=== PATIENT | female | born 1985 | race Caucasian/White ===

== ENCOUNTER 2021-09-24 13:02 | Inpatient (IN) | payer OTHER ==
[2021-09-24] VITALS (7 sets, daily range): BP systolic 98–113; BP diastolic 53–73
[~2021-09-24] VITALS: Ht 152.4 cm; Wt 51.8 kg
--- NOTE | 2021-09-24 13:27 | PHYS DOC ---
Past Medical History Past Medical History: No Pertinent History Past Surgical History: No Surgical History Smoking Status: Never Smoker Alcohol Use: None Drug Use: None General Adult EDM: Chief Complaint: MECHANICAL FALL HPI: HPI: Patient is a 35-year-old female that presents today via [facility] after a syncopal episode. History was obtained from the mother who is at the bedside, she states they were putting away groceries today and the patient had a syncopal episode hitting the bridge of her nose on the counter. Patient states that she does not remember anything before the incident, she denies chest pain, shortness of air, headache, or fever and chills. Patient states she has not eaten or drink anything this morning, she normally eats afternoon. Patient denies any medical problems, surgeries, smoking, alcohol use, or drug use. Patient's Accu-Chek was 158. Review of Systems: Review of Systems: Constitutional: Denies fever or chills. [] Eyes: Denies change in visual acuity. [] HENT: Denies nasal congestion or sore throat. [] Respiratory: Denies cough or shortness of breath. [] Cardiovascular: Denies chest pain or edema. [] GI: Denies abdominal pain, nausea, vomiting, bloody stools or diarrhea. [] : Denies dysuria. [] Musculoskeletal: Denies back pain or joint pain. [] Integument: Laceration to the bridge of the nose denies rash. [] Neurologic: Syncopal episode denies headache, focal weakness or sensory changes. [] Endocrine: Denies polyuria or polydipsia. [] Lymphatic: Denies swollen glands. [] Psychiatric: Denies depression or anxiety. [] Heart Score: C/O Chest Pain: No Risk Factors: Risk Factors: DM, Current or recent (<one month) smoker, HTN, HLP, family history of CAD, obesity. Risk Scores: Score 0 - 3: 2.5% MACE over next 6 weeks - Discharge Home Score 4 - 6: 20.3% MACE over next 6 weeks - Admit for Clinical Observation Score 7 - 10: 72.7% MACE over next 6 weeks - Early Invasive Strategies Physical Exam: PE: Constitutional: Well developed, well nourished, no acute distress, non-toxic appearance. [] HENT: Inspection of palpation of the head and face shows no crepitus no step- offs, laceration noted on the bridge of the nose approximately half a centimeter, no active bleeding, no septal hematoma noted, bilateral external ears normal, oropharynx moist, no oral exudates[] Eyes: PERRLA, EOMI, conjunctiva normal, no discharge. [] Neck: Normal range of motion, no tenderness, supple, no stridor. [] Cardiovascular:Heart rate regular rhythm, no murmur [] Lungs & Thorax: Bilateral breath sounds clear to auscultation [] Abdomen: Bowel sounds normal, soft, no tenderness, no masses, no pulsatile mas ses. [] Skin: Warm, dry, no erythema, no rash. [] Back: No tenderness, no CVA tenderness. [] Extremities: No tenderness, no cyanosis, no clubbing, ROM intact, no edema, peripheral pulses are 2+ Neurologic: Alert and oriented X 3, normal motor function, normal sensory function, no focal deficits noted. [] Psychologic: Affect normal, judgement normal, mood normal. [] Current Patient Data: Labs: Laboratory Tests Test 09/24/21 13:35 09/24/21 14:00 09/24/21 14:06 09/24/21 15:05 White Blood Count 4.7 x10^3/uL Red Blood Count 1.89 x10^6/uL Hemoglobin 3.3 g/dL Hematocrit 11.0 % Mean Corpuscular Volume 58 fL Mean Corpuscular Hemoglobin 18 pg Mean Corpuscular Hemoglobin Concent 30 g/dL Red Cell Distribution Width 26.8 % Platelet Count 58 x10^3/uL Neutrophils (%) (Auto) 76 % Lymphocytes (%) (Auto) 15 % Monocytes (%) (Auto) 8 % Eosinophils (%) (Auto) 1 % Basophils (%) (Auto) 1 % Neutrophils # (Auto) 3.6 x10^3/uL Lymphocytes # (Auto) 0.7 x10^3/uL Monocytes # (Auto) 0.4 x10^3/uL Eosinophils # (Auto) 0.0 x10^3/uL Basophils # (Auto) 0.0 x10^3/uL Platelet Estimate Decreased Polychromasia Hypochromasia Marked Poikilocytosis Slight Anisocytosis Mod Microcytosis Marked Target Cells Present Tear Drop Cells Occ Ovalocytes Present Schistocytes Occ Sodium Level 138 mmol/L Potassium Level 4.1 mmol/L Chloride Level 104 mmol/L Carbon Dioxide Level 24 mmol/L Anion Gap 10 Blood Urea Nitrogen 9 mg/dL Creatinine 0.6 mg/dL Estimated GFR (Cockcroft-Gault) 112.5 BUN/Creatinine Ratio 15 Glucose Level 96 mg/dL Calcium Level 8.6 mg/dL Total Bilirubin 0.5 mg/dL Aspartate Amino Transf (AST/SGOT) 36 U/L Alanine Aminotransferase (ALT/SGPT) 17 U/L Alkaline Phosphatase 65 U/L Troponin I High Sensitivity 5 ng/L Total Protein 7.3 g/dL Albumin 3.4 g/dL Albumin/Globulin Ratio 0.9 Urine Collection Type Unknown Urine Color (Auto) Light yellow Urine Turbidity Hazy Urine pH (Auto) 7.0 Urine Specific [place] 1.012 Urine Protein (Auto) 50 mg/dL Urine Glucose (Auto)(UA) Negative mg/dL Urine Ketones (Auto) Negative mg/dL Urine Blood (Auto) Negative Urine Nitrite Negative Urine Bilirubin (Auto) Negative Urine Urobilinogen (Auto) Normal mg/dL Urine Leukocyte Esterase (Auto) Negative Urine RBC Occ /HPF Urine WBC 1-4 /HPF Urine Squamous Epithelial Cells Mod /LPF Urine Bacteria Moderate /HPF Bedside Urine HCG, Qualitative Hcg negative Stool Occult Blood Negative Current Medications Medications (Trade) Dose Ordered Sig/Rolan Route PRN Reason Start Time Stop Time Status Last Admin Dose Admin Sodium Chloride 1,000 ml @ 999 mls/hr 1X ONCE IV 09/24/21 13:30 09/24/21 14:30 DC 09/24/21 13:44 Vital Signs: Vital Signs Date Time Temp Pulse Resp B/P (MAP) Pulse Ox O2 Delivery O2 Flow Rate FiO2 09/24/21 13:39 97.8 105 18 110/58 (75) 100 Room Air 97.8 EKG: EKG: EKG done at [address] Gonzalez at 1322 shows sinus rhythm no ectopy at a rate of 103 with a TX interval of 144 ms with a QTC of 426 ms no STEMI [] Radiology/Procedures: Radiology/Procedures: REASON: SYNCOPE PROCEDURE: CT MAXILLOFACIAL WO CONTRAST Exam Date: 09/24/2021 2:[address] MAXILLOFACIAL WITHOUT CONTRAST, CT HEAD AND C-SPINE WO Indication: Reason: SYNCOPE / Spl. Instructions: / History: . One or more of the following dose reduction techniques were utilized: *Automated exposure control (AEC) *Adjustment of mA and/or kV according to patient size *Use of iterative reconstruction technique *CT scan done according to ALARA, or ALARA/IMAGE GENTLY EXAMINATION: CT OF THE HEAD WITHOUT CONTRAST INDICATION: Trauma, head injury, headache; TECHNIQUE: Noncontrast helical axial CT images of the head were obtained. FINDINGS: The ventricles and sulci are normal for the patient's stated age. There is no evidence of acute intracranial hemorrhage, extra-axial collection, mass effect, midline shift, or acute territorial infarct. No lesion of the skull base or the calvarium is seen. The visualized paranasal sinuses, mastoid air cells, and orbits are normal in appearance. IMPRESSION: No evidence for acute intracranial abnormality. EXAMINATION: MAXILLOFACIAL CT WITHOUT CONTRAST CLINICAL INDICATION: Maxillofacial pain after trauma TECHNIQUE: Helical axial CT images through the maxillofacial bones were obtained without contrast. Source data were reconstructed into the sagittal and coronal planes. FINDINGS: There is no evidence of acute facial bone fracture. The mandible appears intact. Orbits appear intact. The nasal septum is intact and near midline. The visualized paranasal sinuses and mastoid air cells appear clear. IMPRESSION: No evidence of acute fracture of the maxillofacial bones. EXAMINATION: CT OF THE CERVICAL SPINE WITHOUT CONTRAST Clinical Indication: Cervical spine pain after trauma Technique: Thin cut helical axial CT images through the cervical spine were obtained without contrast on a multi-detector CT scanner. Source data was then reconstructed into sagittal and coronal planes. Findings: Alignment is maintained without spondylolisthesis. Vertebral body heights are maintained without acute fracture. Disc spaces are preserved. No significant prevertebral soft tissue swelling is demonstrated. No severe osseous central canal stenosis is seen. Impression: No evidence of acute cervical spine fracture or subluxation. Electronically signed by: Joseph Brandt MD (09/24/2021 3:59 PM) [facility] DICTATED and SIGNED BY: JOSEPH BRANDT MD DATE: 09/24/21 1541 [] Course & Med Decision Making: Course & Med Decision Making Pertinent Labs and Imaging studies reviewed. (See chart for details) 1515 was informed by nursing staff patient has bedbugs, due to hemoglobin 3.3 rectal exam was performed with regulatory affairs assistant at the bedside fecal occult was sent to the lab. Did inform mom that due to patient's low hemoglobin the patient will be admitted for further evaluation and treatment of her low hemoglobin we continue to wait for radiological results. Dermabond was used to repair half centimeter laceration on the bridge of the nose, patient tolerated well. Dragon Disclaimer: Dragon Disclaimer: This electronic medical record was generated, in whole or in part, using a voice recognition dictation system. Departure Departure Impression: Primary Impression: Syncope Qualified Codes: R55 - Syncope and collapse Additional Impressions: Anemia Qualified Codes: D64.9 - Anemia, unspecified Laceration of face Qualified Codes: S01.81XA - Laceration without foreign body of other part of head, initial encounter Disposition: ADMITTED INPATIENT Admitting Physician: Eugenio Lyle Condition: GUARDED Referrals: DELIA POLK MD (PCP) CAROL RAE APRN Sep 24, 2021 13:27
[2021-09-24] MEDS ORDERED: IV NORMAL SALINE 1000ML BAG 1,000 ML IV ONE (13:30)
[2021-09-24 13:47] LABS: BASO % 1 % (0-3); EOS % 1 % (0-3); LYMPH # 0.7 x10^3/uL (1.0-4.8); LYMPH % 15 % (24-48); MEAN CORPUSCULAR HEMOGLOBIN 18 pg (25-35); MEAN CORPUSCULAR HGB CONC 30 g/dL (31-37); MEAN CORPUSCULAR VOLUME 58 fL (79-100); MONO # 0.4 x10^3/uL (0.0-1.1); MONO % 8 % (0-9); NEUT # 3.6 x10^3/uL (1.8-7.7); NEUT % 76 % (31-73); PLATELET COUNT 58 x10^3/uL (140-400); RED BLOOD COUNT 1.89 x10^6/uL (3.50-5.40); RED CELL DISTRIBUTION WIDTH 26.8 % (11.5-14.5); WHITE BLOOD COUNT 4.7 x10^3/uL (4.0-11.0)
[2021-09-24 13:54] LABS: HEMOGLOBIN 3.3 g/dL (12.0-15.5)
[2021-09-24 13:58] LABS: CALCIUM 8.6 mg/dL (8.5-10.1); CREATININE 0.6 mg/dL (0.6-1.0); GFR 112.5; POTASSIUM 4.1 mmol/L (3.5-5.1)
--- NOTE | 2021-09-24 13:59 | EKG ---
[facility] [address] [place] [address] Test Date: 2021-09-24 Test Time: 13:20:03 Pat Name: ADRIAN AGUIRRE Department: Room: Gender: F [employer]: : 1985 Requested By: CAROL RAE Order Number: [id number] Reading MD: Naveen Mccormick Measurements Intervals [place] Rate: 103 P: 121 NM: 144 QRS: 159 QRSD: 74 T: 149 QT: 324 QTc: 426 Interpretive Statements SINUS TACHYCARDIA LEFT ATRIAL ABNORMALITY LOW LIMB LEAD VOLTAGE QRS(T) CONTOUR ABNORMALITY CONSISTENT WITH HIGH LATERAL INFARCT AGE UNDETERMINED ABNORMAL ECG RI6.02 No previous ECG available for comparison Electronically Signed On 10-02-2021 14:21:50 CDT by Naveen Mccormick
[2021-09-24 14:03] LABS: ALBUMIN 3.4 g/dL (3.4-5.0); ALBUMIN/GLOBULIN RATIO 0.9 (1.0-1.7); TOTAL BILIRUBIN 0.5 mg/dL (0.2-1.0); TOTAL PROTEIN 7.3 g/dL (6.4-8.2)
[2021-09-24 14:25] LABS: BACTERIA,URINE MODERATE /HPF (0-FEW); RBC,URINE OCC /HPF (0-2)
[2021-09-24 14:42] LABS: ANISOCYTOSIS MOD; HYPOCHROMIA MARKED; MICROCYTOSIS MARKED; PLT ESTIMATE DECREASED (ADEQUATE); POIKILOCYTOSIS SLIGHT
[2021-09-24 14:43] LABS: OVALOCYTES PRESENT; TARGET CELLS PRESENT; TEAR DROP CELLS OCC
[2021-09-24 14:44] LABS: SCHISTOCYTES OCC
[2021-09-24 15:24] LABS: FECAL OB PT NEGATIVE (NEG)
[2021-09-24 15:54] LABS: THYROID STIM HORMONE (TSH) 1.923 uIU/mL (0.358-3.74)
--- NOTE | 2021-09-24 16:02 | RAD ---
Exam Date: 09/24/2021 2:[address] MAXILLOFACIAL WITHOUT CONTRAST, CT HEAD AND C-SPINE WO Indication: Reason: SYNCOPE / Spl. Instructions: / History: . One or more of the following dose reduction techniques were utilized: *Automated exposure control (AEC) *Adjustment of mA and/or kV according to patient size *Use of iterative reconstruction technique *CT scan done according to ALARA, or ALARA/IMAGE GENTLY EXAMINATION: CT OF THE HEAD WITHOUT CONTRAST INDICATION: Trauma, head injury, headache; TECHNIQUE: Noncontrast helical axial CT images of the head were obtained. FINDINGS: The ventricles and sulci are normal for the patient's stated age. There is no evidence of acute int racranial hemorrhage, extra-axial collection, mass effect, midline shift, or acute territorial infarc t. No lesion of the skull base or the calvarium is seen. The visualized paranasal sinuses, mastoid ai r cells, and orbits are normal in appearance. IMPRESSION: No evidence for acute intracranial abnormality. EXAMINATION: MAXILLOFACIAL CT WITHOUT CONTRAST CLINICAL INDICATION: Maxillofacial pain after trauma TECHNIQUE: Helical axial CT images through the maxillofacial bones were obtained without contrast. So urce data were reconstructed into the sagittal and coronal planes. FINDINGS: There is no evidence of acute facial bone fracture. The mandible appears intact. Orbits appear intact . The nasal septum is intact and near midline. The visualized paranasal sinuses and mastoid air cells appear clear. IMPRESSION: No evidence of acute fracture of the maxillofacial bones. EXAMINATION: CT OF THE CERVICAL SPINE WITHOUT CONTRAST Clinical Indication: Cervical spine pain after trauma Technique: Thin cut helical axial CT images through the cervical spine were obtained without contrast on a multi-detector CT scanner. Source data was then reconstructed into sagittal and coronal planes. Findings: Alignment is maintained without spondylolisthesis. Vertebral body heights are maintained without acute fracture. Disc spaces are preserved. No signific ant prevertebral soft tissue swelling is demonstrated. No severe osseous central canal stenosis is se en. Impression: No evidence of acute cervical spine fracture or subluxation. Electronically signed by: Moe Brandt MD (09/24/2021 3:59 PM) MICHELLE
[2021-09-25] VITALS (13 sets, daily range): BP systolic 92–112; BP diastolic 38–62
[2021-09-25 02:38] LABS: BASO % 1 % (0-3); EOS % 0 % (0-3); HEMATOCRIT 19.6 % (36.0-47.0); LYMPH # 0.9 x10^3/uL (1.0-4.8); LYMPH % 27 % (24-48); MEAN CORPUSCULAR HEMOGLOBIN 21 pg (25-35); MEAN CORPUSCULAR HGB CONC 30 g/dL (31-37); MEAN CORPUSCULAR VOLUME 71 fL (79-100); MONO # 0.4 x10^3/uL (0.0-1.1); MONO % 13 % (0-9); NEUT # 1.9 x10^3/uL (1.8-7.7); NEUT % 59 % (31-73); PLATELET COUNT 47 x10^3/uL (140-400); RED BLOOD COUNT 2.76 x10^6/uL (3.50-5.40); RED CELL DISTRIBUTION WIDTH 30.1 % (11.5-14.5); WHITE BLOOD COUNT 3.2 x10^3/uL (4.0-11.0)
[2021-09-25 02:40] LABS: HEMOGLOBIN 5.8 g/dL (12.0-15.5)
--- NOTE | 2021-09-25 09:18 | PDOC ---
Provider Note Date of Service: DATE: 09/25/21 TIME: 09:18 Provider Note dictated Justifications for Admission Other Justification CHERI COOL MD Sep 25, 2021 09:18
[2021-09-25 09:38] LABS: HEMATOCRIT 26.3 % (36.0-47.0); RED BLOOD COUNT 3.55 x10^6/uL (3.50-5.40); RED CELL DISTRIBUTION WIDTH 28.8 % (11.5-14.5); WHITE BLOOD COUNT 4.5 x10^3/uL (4.0-11.0)
--- NOTE | 2021-09-25 11:30 | PDOC2 ---
GI CONSULT Date of Service: DATE: 09/25/21 TIME: 11:30 Reason For Consult: ADRIANA HPI: HPI: 35 y/o female admitted through ER after syncope/fall at home (mom heard a thud). Noted w/ profound microcytic anemia, requiring transfusions. Ferrtin and plt low as well, B12 364. Hemoccult negative, TSH normal. GLO and hematology opinion pending. She denies obvious bleeding. Does report "usually pretty heavy nature" (periods) and goes through "usually probably a lot" of pads, thinks drinking water helps slow bleeding. Denies reflux/heartburn, dysphagia, n/v, abd pain, diarrhea, constipation, hematochezia, melena, hematemesis, change in appetite, or weight loss, No previous EGD or colonoscopy. No GB, liver, pancreas, or PUD history. No regular NSAID use. PMH: PMH: denies cognitive delay FH: Family History: No pertinent hx (no GI cancers), DM Social History: Smoke: No ALCOHOL: none Drugs: None ROS: GEN: Denies fevers, chills, sweats HEENT: Denies blurred vision, sore throat CV: Denies chest pain RESP: Denies shortness of air, cough GI: Per HPI : Denies hematuria, dysuria ENDO: Denies weight changes NEURO: +syncope MSK: Denies weakness, joint pain/swelling SKIN: Denies jaundice, pruritus Vitals: Vitals: Vital Signs Date Time Temp Pulse Resp B/P (MAP) Pulse Ox O2 Delivery O2 Flow Rate FiO2 09/25/21 10:32 97.9 77 16 101/62 (75) 100 Room Air 97.9 Labs: Labs: Laboratory Tests Test 09/24/21 13:35 09/24/21 14:00 09/24/21 14:06 09/24/21 14:55 White Blood Count 4.7 x10^3/uL (4.0-11.0) Red Blood Count 1.89 x10^6/uL (3.50-5.40) Hemoglobin 3.3 g/dL (12.0-15.5) Hematocrit 11.0 % (36.0-47.0) Mean Corpuscular Volume 58 fL (79-100) Mean Corpuscular Hemoglobin 18 pg (25-35) Mean Corpuscular Hemoglobin Concent 30 g/dL (31-37) Red Cell Distribution Width 26.8 % (11.5-14.5) Platelet Count 58 x10^3/uL (140-400) Neutrophils (%) (Auto) 76 % (31-73) Lymphocytes (%) (Auto) 15 % (24-48) Monocytes (%) (Auto) 8 % (0-9) Eosinophils (%) (Auto) 1 % (0-3) Basophils (%) (Auto) 1 % (0-3) Neutrophils # (Auto) 3.6 x10^3/uL (1.8-7.7) Lymphocytes # (Auto) 0.7 x10^3/uL (1.0-4.8) Monocytes # (Auto) 0.4 x10^3/uL (0.0-1.1) Eosinophils # (Auto) 0.0 x10^3/uL (0.0-0.7) Basophils # (Auto) 0.0 x10^3/uL (0.0-0.2) Platelet Estimate Decreased (ADEQUATE) Polychromasia Hypochromasia Marked Poikilocytosis Slight Anisocytosis Mod Microcytosis Marked Target Cells Present Tear Drop Cells Occ Ovalocytes Present Schistocytes Occ Sodium Level 138 mmol/L (136-145) Potassium Level 4.1 mmol/L (3.5-5.1) Chloride Level 104 mmol/L (98-107) Carbon Dioxide Level 24 mmol/L (21-32) Anion Gap 10 (6-14) Blood Urea Nitrogen 9 mg/dL (7-20) Creatinine 0.6 mg/dL (0.6-1.0) Estimated GFR (Cockcroft-Gault) 112.5 BUN/Creatinine Ratio 15 (6-20) Glucose Level 96 mg/dL (70-99) Calcium Level 8.6 mg/dL (8.5-10.1) Total Bilirubin 0.5 mg/dL (0.2-1.0) Aspartate Amino Transf (AST/SGOT) 36 U/L (15-37) Alanine Aminotransferase (ALT/SGPT) 17 U/L (14-59) Alkaline Phosphatase 65 U/L (46-116) Troponin I High Sensitivity 5 ng/L (4-50) Total Protein 7.3 g/dL (6.4-8.2) Albumin 3.4 g/dL (3.4-5.0) Albumin/Globulin Ratio 0.9 (1.0-1.7) Urine Collection Type Unknown Urine Color (Auto) Light yellow Urine Turbidity Hazy Urine pH (Auto) 7.0 (<5.0-8.0) Urine Specific [place] 1.012 (1.000-1.030) Urine Protein (Auto) 50 mg/dL (Negative) Urine Glucose (Auto)(UA) Negative mg/dL (Negative) Urine Ketones (Auto) Negative mg/dL (Negative) Urine Blood (Auto) Negative (Negative) Urine Nitrite Negative (Negative) Urine Bilirubin (Auto) Negative (Negative) Urine Urobilinogen (Auto) Normal mg/dL (Normal) Urine Leukocyte Esterase (Auto) Negative (Negative) Urine RBC Occ /HPF (0-2) Urine WBC 1-4 /HPF (0-4) Urine Squamous Epithelial Cells Mod /LPF Urine Bacteria Moderate /HPF (0-FEW) Bedside Urine HCG, Qualitative Hcg negative (Negative) Ferritin 3 ng/mL (8-252) Vitamin B12 Level 364 pg/mL (247-911) Thyroid Stimulating Hormone (TSH) 1.923 uIU/mL (0.358-3.74) Free Triiodothyronine (T3) pg/mL 2.85 pg/mL (2.18-3.98) Test 09/24/21 15:05 09/24/21 15:32 09/25/21 02:15 09/25/21 09:05 Stool Occult Blood Negative (NEG) Lactic Acid Level 1.9 mmol/L (0.4-2.0) White Blood Count 3.2 x10^3/uL (4.0-11.0) 4.5 x10^3/uL (4.0-11.0) Red Blood Count 2.76 x10^6/uL (3.50-5.40) 3.55 x10^6/uL (3.50-5.40) Hemoglobin 5.8 g/dL (12.0-15.5) 8.0 g/dL (12.0-15.5) Hematocrit 19.6 % (36.0-47.0) 26.3 % (36.0-47.0) Mean Corpuscular Volume 71 fL (79-100) 74 fL (79-100) Mean Corpuscular Hemoglobin 21 pg (25-35) 23 pg (25-35) Mean Corpuscular Hemoglobin Concent 30 g/dL (31-37) 31 g/dL (31-37) Red Cell Distribution Width 30.1 % (11.5-14.5) 28.8 % (11.5-14.5) Platelet Count 47 x10^3/uL (140-400) 50 x10^3/uL (140-400) Neutrophils (%) (Auto) 59 % (31-73) Lymphocytes (%) (Auto) 27 % (24-48) Monocytes (%) (Auto) 13 % (0-9) Eosinophils (%) (Auto) 0 % (0-3) Basophils (%) (Auto) 1 % (0-3) Neutrophils # (Auto) 1.9 x10^3/uL (1.8-7.7) Lymphocytes # (Auto) 0.9 x10^3/uL (1.0-4.8) Monocytes # (Auto) 0.4 x10^3/uL (0.0-1.1) Eosinophils # (Auto) 0.0 x10^3/uL (0.0-0.7) Basophils # (Auto) 0.0 x10^3/uL (0.0-0.2) Allergies: Coded Allergies: No Known Drug Allergies (Unverified , 09/24/21) Medications: Current Medications Medications (Trade) Dose Ordered Sig/Rolan Route PRN Reason Start Time Stop Time Status Last Admin Dose Admin Sodium Chloride 1,000 ml @ 999 mls/hr 1X ONCE IV 09/24/21 13:30 09/24/21 14:30 DC 09/24/21 13:44 Imaging: Imaging: Head, C-spine, Maxillofacial CT IMPRESSION: No evidence for acute intracranial abnormality. IMPRESSION: No evidence of acute fracture of the maxillofacial bones. PE: GEN: NAD HEENT: Atraumatic, PERRL LUNGS: CTAB HEART: RRR ABD: NABS, S/ND/NT EXTREMITY: No edema SKIN: small lac on nose NEURO/PSYCH: A & O 3 A/P: A/P: Syncope Profound microcytic anemia, thrombocytopenia H/o menorrhagia CRC screen - average risk -- Denies obvious GI bleeding. Hematology consult pending, consider POINTER HELPER opinion. Checking iron and retic count for completeness, consider addition of iron. Give B12 inj, check pelv US. Long-term can consider 'scopes (can pursue outpt if Hgb stable) if hematology/POINTER HELPER workup unrevealing. Okay for regular diet per GI. ARTURO ALICEA Sep 25, 2021 11:30
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
[2021-09-25] MEDS ORDERED: CYANOCOBALAMIN (VITAMIN B-12) 1,000 MCG/ML VIAL. IM ONE (12:00)
[2021-09-25] MEDS: PANTOPRAZOLE 40 MG TABLET.DR. PO SCH (12:19)
--- NOTE | 2021-09-25 14:22 | RAD ---
US PELVIS COMPLETE History: Reason: microcytic anemia, h/o menorrhagia / Spl. Instructions: / History: Comparison: None Technique: Grayscale and color Doppler imaging of the pelvis was performed using transabdominal tech nique. Findings: The uterus measures 9.9 x 5.3 x 4.4 cm. Uterus has an unremarkable appearance. The endometrial stri pe measures 2 mm. Right ovary measures 3.2 x 1.3 x 1.2 cm. Left ovary measures 3.8 x 1.8 x 1.9 cm. Normal Doppler flow to the ovaries. No adnexal masses are seen. IMPRESSION: 1. Unremarkable pelvic ultrasound. Electronically signed by: Cedric Morales DO (09/25/2021 2:19 PM) [id number]
[2021-09-26 03:00] VITALS: BP 102/45
[2021-09-26 07:00] VITALS: BP 114/60
[2021-09-26] MEDS: PANTOPRAZOLE 40 MG TABLET.DR. PO SCH (08:45)
[2021-09-26 09:17] LABS: BASO % 1 % (0-3); EOS # 0.1 x10^3/uL (0.0-0.7); EOS % 1 % (0-3); HEMATOCRIT 24.1 % (36.0-47.0); HEMOGLOBIN 7.5 g/dL (12.0-15.5); LYMPH # 0.8 x10^3/uL (1.0-4.8); LYMPH % 18 % (24-48); MEAN CORPUSCULAR HEMOGLOBIN 23 pg (25-35); MEAN CORPUSCULAR HGB CONC 31 g/dL (31-37); MEAN CORPUSCULAR VOLUME 73 fL (79-100); MONO # 0.4 x10^3/uL (0.0-1.1); MONO % 10 % (0-9); NEUT # 3.1 x10^3/uL (1.8-7.7); NEUT % 70 % (31-73); PLATELET COUNT 54 x10^3/uL (140-400); RED CELL DISTRIBUTION WIDTH 29.8 % (11.5-14.5); WHITE BLOOD COUNT 4.4 x10^3/uL (4.0-11.0)
[2021-09-26 11:00] VITALS: BP 105/47
--- NOTE | 2021-09-26 12:19 | PDOC ---
Provider Note Date of Service: DATE: 09/26/21 TIME: 12:18 Provider Note hb 7.5 after 3 u- jessenia pending re thrombocytopenia- add a dose of iv iron, follow daily , may have more than ADRIANA Justifications for Admission Other Justification CHERI COOL MD Sep 26, 2021 12:19
[2021-09-26] MEDS ORDERED: IRON SUCROSE COMPLEX 500 MG in IV NORMAL SALINE 250ML 250 ML IV ONE (14:00)
[2021-09-26 15:00] VITALS: BP 99/51
[2021-09-26 19:00] VITALS: BP 106/53
[2021-09-26 22:58] VITALS: BP 93/60
[2021-09-27 03:00] VITALS: BP 95/60
[2021-09-27 07:00] VITALS: BP 110/47
[2021-09-27] MEDS: PANTOPRAZOLE 40 MG TABLET.DR. PO SCH (08:27)
--- NOTE | 2021-09-27 10:15 | PDOC ---
Provider Note Date of Service: DATE: 09/27/21 TIME: 10:14 Provider Note vss, feels better- today hb pending- will givwe another venofer , heme consult re thrombocytopenia pending- po iron also to replenish re low ferritin- GLO pending Justifications for Admission Other Justification CHERI COOL MD Sep 27, 2021 10:15
[2021-09-27 11:00] VITALS: BP 102/49
[2021-09-27] MEDS ORDERED: IRON SUCROSE COMPLEX 500 MG in IV NORMAL SALINE 250ML 250 ML IV ONE (12:00)
[2021-09-27 15:00] VITALS: BP 93/43
[2021-09-27 19:00] VITALS: BP 101/46
[2021-09-27 23:00] VITALS: BP 106/50
[2021-09-28 03:00] VITALS: BP 104/52
[2021-09-28 05:57] LABS: HEMATOCRIT 25.1 % (36.0-47.0); HEMOGLOBIN 7.8 g/dL (12.0-15.5); RED BLOOD COUNT 3.35 x10^6/uL (3.50-5.40); RED CELL DISTRIBUTION WIDTH 31.8 % (11.5-14.5)
[2021-09-28 07:00] VITALS: BP 96/49
[2021-09-28] MEDS ORDERED: FERROUS SULFATE ORAL 300 MG/5 ML SOLUTION. PO SCH (08:00)
--- NOTE | 2021-09-28 08:35 | PDOC ---
Provider Note Date of Service: DATE: 09/28/21 TIME: 08:34 Provider Note [id number] Justifications for Admission Other Justification CHERI COOL MD Sep 28, 2021 08:35
--- NOTE | 2021-09-28 09:55 | PDOC ---
Date of Service: DATE: 09/28/21 TIME: 09:51 Subjective: Subjective: Feeling better, gets to go home today - mentions needs to see the blood doctor though. Objective: Objective: Hematology asked to see 09/25. Vital Signs: Vital Signs Date Time Temp Pulse Resp B/P (MAP) Pulse Ox O2 Delivery O2 Flow Rate FiO2 09/28/21 07:00 98.2 71 18 96/49 (65) 98 Room Air 98.2 Labs: Laboratory Tests Test 09/28/21 05:05 White Blood Count 5.0 x10^3/uL Red Blood Count 3.35 x10^6/uL Hemoglobin 7.8 g/dL Hematocrit 25.1 % Mean Corpuscular Volume 75 fL Mean Corpuscular Hemoglobin 24 pg Mean Corpuscular Hemoglobin Concent 31 g/dL Red Cell Distribution Width 31.8 % Platelet Count 101 x10^3/uL Imaging: Pelv US 09/25 IMPRESSION: 1. Unremarkable pelvic ultrasound. PE: GEN: NAD LUNGS: CTAB HEART: RRR ABD: NABS, S/ND/NT NEURO/PSYCH: A & O 3 A/P: Syncope Profound microcytic anemia, low ferritin, low-normal B12, thrombocytopenia (better), normal retic - s/p transfusions, Venofer, and B12 inj - no obvious GI bleeding ?h/o menorrhagia - pelvic US unremarkable (above) -- Denies obvious GI bleeding. Hematology eval pending. Has DC orders - okay per GI - we'll plan outpt scopes - d/w pt/family. Justicifation of Admission Dx: Justifications for Admission: Justification of Admission Dx: Yes ARTURO ALICEA Sep 28, 2021 09:55
[2021-09-28 11:00] VITALS: BP 99/43
--- NOTE | 2021-09-28 11:39 | DS ---
DATE OF DISCHARGE: 09/28/2021 HOSPITAL SUMMARY: The patient came in with syncopal episode and a baseline hemoglobin of 3.2 with MCV low at 58, platelet count low at 50,000. She received 4 units of packed red blood cells over the time in her hospital stay and hemoglobin dropped to 7.8 and MCV up to 75. Reticulocyte count was normal as well as B12 level. Iron was mildly low at 73. Ferritin low at 3, TIBC high at 480. T4 and TSH normal and GLO tests pending at this time. Platelet count was low at 58,000 and remain low; although, it went up to 101,000 prior to dismissal with a borderline low white count. She was given IV iron x 2 and oral iron as well and is feeling better with stable vital signs. Because of thrombocytopenia, she will be seen by Hematology today and followed as an outpatient. Has iron deficiency anemia. Iron deficiency anemia would be expected to give her a thrombocytosis, not a low count. GLO is pending. FINAL DIAGNOSES: 1. Syncope secondary to severe iron deficiency anemia. 2. Thrombocytopenia, etiology undetermined. OPERATIONS, PROCEDURES, AND COMPLICATIONS: None. CONSULTATION: Dr. Ramirez, Dr. Farias. DISPOSITION: Iron tablets one twice a day and see Dr. Keyes and myself in 1-2 weeks to follow her hemoglobin and reticulocyte response. Platelet count will be monitored as well and if Dr. Farias has any hematologic suggestions, she will follow. GLO pending as previously dictated. Iron deficiency may be due to just ongoing menstrual blood loss which is not easily quantitative and consideration of control pills to reduce menorrhagia must be given as well. BRY/[facility] [place]: BRY/riley TID: [id number]
[2021-09-28 20:20] LABS: ANA INTERP Negative (.)
== END 2021-09-28 16:36 | disposition home or self-care (01) | DRG 812 ==
LOC: ER 13:02 → ED HOLD 16:00 → 4 NORTH 16:12 → 1 WEST ICU 19:40 → 4 NORTH 09-25 16:00
PROVIDERS: ADMIT Family Medicine; ATTEND Family Medicine
PROC: 0HQ1XZZ Repair Face Skin, External Approach (ICD-10-PCS; principal; 2021-09-24)
PROC: 30233N1 Transfusion of Nonautologous Red Blood Cells into Peripheral Vein, Percutaneous Approach (ICD-10-PCS; 2021-09-24)
DX: D50.9 Iron deficiency anemia, unspecified (principal); D61.818 Other pancytopenia; S01.81XA Laceration without foreign body of other part of head, initial encounter; X58.XXXA Exposure to other specified factors, initial encounter; Y93.89 Activity, other specified; Y92.89 Other specified places as the place of occurrence of the external cause; Y99.8 Other external cause status
CPT/HCPCS: 36415; 36430; 70450; 70486; 72125; 76856; 80053; 81001; 81025; 82274; 82607; 82728; 83540; 83550; 83605; 84443; 84481; 84484; 85025; 85027; 85045; 86038; 86850; 86900; 86901; 86920; 87086; 93005; 96360; 96361; 96372; J1756; J3420; J7030; J7050; P9016; 99285-25; G0378